=== PATIENT | male | born 1995 | race African-American/Black ===

== ENCOUNTER 2018-11-02 03:04 | Emergency (ER) | payer BC, SELFPAY ==
[2018-11-02] VITALS (63 sets, daily range): BP systolic 116–146; BP diastolic 56–84; PULSE 77–96; RESP 7–22; TEMP 36.7; O2SAT 82–100
--- NOTE | 2018-11-02 03:17 | W.ED.GENAD ---
Discharge Plan Disposition Patient Disposition: HOME Condition: Good Discharge Details Chief Complaint: Palpitatns Clinical Impression: Heart palpitations, ECG abnormality, Acute hypokalemia Primary Care Provider: Hermelinda,Local ED Provider: Dawson Moses Home Meds and New Rx's Prescriptions: No Action No Known Home Meds RF: 0 Discharge Instructions Instructions: Palpitations (ED) Additional Instructions: Your EKG shows abnormalities which are concerning. Since you are electing to follow-up closely with your talent acquisition associate it is imperative that you follow-up as soon as possible, and not miss the appointment. If you have any return of your symptoms please return immediately to the closest emergency department. Please have your primary care doctor and your talent acquisition associate contact the [facility] medical records department for the release of your records for their review. Please avoid any cocaine, alcohol, amphetamines, illicit drugs, or marijuana. If you notice any worsening of your symptoms, or any new symptoms such as vomiting, diarrhea, fever, chills, shortness of breath, chest pain, numbness, weakness, or fainting , please return immediately to the emergency department for reevaluation. Please follow up with your primary care provider as soon as possible for reassessment and reevaluation. As always, it was a pleasure participating in your medical care today. Discharge Data Discharge Date/Time-TO BE ENTERED AT DEPARTURE: 11/02/18 09:21 Medical Decision Making <Mendoza Joy MD - Last Filed: 11/02/18 08:42> 7:00 --22-year-old male who presents with chief complaint of palpitations after consuming heavy amounts of alcohol yesterday. Patient clinically intoxicated on arrival. Recent vomiting. Patient admits to THC use but denies any sympathomimetics. Considered electrolyte abnormalities. Labs reviewed and hypokalemia noted. Patient given potassium 20 mEq IV and 20 mEq orally. Initial EKG reviewed and interpreted by me: Sinus rhythm 86 bpm, normal axis, biphasic T waves with deep T wave inversion noted V2 and V3, J-point elevation in V4 to V6 noted. Repeat ECG reviewed and interpreted by me: Sinus rhythm 91 bpm, T wave inversions in V2 and V3 have resolved, he continues to have J-point elevation noted V4 to V6. Initial troponin negative. Plan for repeat troponin. UDS negative. Patient given 2L IVF fluid bolus. --Patient reassessed and much improved clinically. He is able to eat and drink normally. Mentating normally. Patient has no complaint of chest pain or palpitations. He does now note that he had some chest discomfort earlier when he had the palpitations and is now resolved. 8:00 -- Care signed out to Dr. Moses who will follow-up on trop, consult cardiology and disposition patient. HPI <Mendoza Joy MD - Last Filed: 11/02/18 08:42> General Mode of arrival: ambulatory. Date/Time Provider Initiated Documentation: 11/02/18 03:15. Limitations to Documentation: no limitations. Information obtained by: patient. HPI Narrative: 22-year-old male here with chief complaint of sensation of racing heart. This started just prior to arrival. Patient notes that he consumed a heavy amount of whiskey and beer tonight. Also used marijuana. He had episode of vomiting and diaphoresis and then developed heart racing. History is limited as patient is altered - presumed intoxication. Patient denies pain. No trauma. EMS initiated IV access, administered IV fluid and Zofran 4 mg IV. Related Data Home Medications Medication Instructions Recorded Confirmed Unknown [No Known Home Meds] 11/02/18 11/02/18 Allergies Allergy/AdvReac Type Severity Reaction Status Date / Time No Known Allergies Allergy Unverified 11/02/18 03:10 General Stated Complaint: Palpitatns MATI: 3 Review of Systems <Mendoza Joy MD - Last Filed: 11/02/18 08:42> Constitutional Denies headache(s) Eyes Denies blurry vision and Denies loss of vision ENT Denies headache(s) Cardiovascular Denies chest pain, Reports rapid heart rate and Denies dyspnea Respiratory Denies dyspnea Gastrointestinal Denies abdominal pain and Reports vomiting Integumentary/Breasts Reports other (diaphoresis) Neurologic Denies headache(s), Denies focal weakness and Denies loss of vision Psychiatric Denies anxiety PFSH <Mendoza Joy MD - Last Filed: 11/02/18 08:42> Social History Smoking/Tobacco Use Status: Never Alcohol Intake: current Alcohol Intake frequency: a few times a week Alcohol type: beer and hard liquor Drug use: Occasionally Substance use type: marijuana Exam <Mendoza Joy MD - Last Filed: 11/02/18 08:42> Const General: cooperative and no acute distress [facility] Head: normocephalic and atraumatic Mouth: moist mucous membranes Eyes Conjunctivae: normal conjunctivae Sclera: normal sclerae EOM: EOM intact bilaterally Neck Neck: supple Resp Auscultation: clear to auscultation bilaterally, no rales, no rhonchi and no wheezes Cardio Jugular venous pressure: no JVD Rate: regular rate and not tachycardic Rhythm: regular rhythm Heart Sounds: no gallops, no murmurs and no rubs GI Palpation: soft, not firm, no guarding, no masses, not rigid and nontender Skin General skin exam: no rashes or lesions noted Neuro General: alert, awake, oriented x3 and tone normal Speech: abnormal speech (slurred) Extrem General: no edema Course <Mendoza Joy MD - Last Filed: 11/02/18 08:42> Vital Signs Temperature 36.7 C 11/02/18 03:07 Pulse 93 H 11/02/18 03:07 Respiratory Rate 17 11/02/18 03:07 Blood Pressure 146/71 H 11/02/18 03:07 Pulse Oximetry 99 11/02/18 03:07 Temperature 36.7 C 11/02/18 03:07 Temperature Source Skin 11/02/18 03:07 Pulse 93 H 11/02/18 03:07 Respiratory Rate 17 11/02/18 03:07 Respiratory Effort Non-Labored 11/02/18 03:10 Blood Pressure 146/71 H 11/02/18 03:07 Blood Pressure Position Sitting 11/02/18 03:07 Pulse Oximetry 99 11/02/18 03:07 Oxygen Delivery Method Room Air 11/02/18 03:07 Oxygen Flow Rate 0 11/02/18 03:07 Pain Level 0 11/02/18 03:07 Sign Out <Mendoza Joy MD - Last Filed: 11/02/18 08:42> Sign Out Data: Sign Out Comment: follow-up on trop and consult cardiology and disposition patient Last updated by Mendoza Joy MD at 11/02/18 08:22
[2018-11-02 03:46] LABS: HCT 37.5 % (40.0-50.0); HGB 13.5 g/dL (13.5-17.5); Mean Corpuscular Hemoglobin 30.8 pg (27.0-33.0); Mean Corpuscular Volume 85.6 fL (80-95); Mean Platelet Volume 10.2 fL (8.0-11.0); Platelet Count 274 x1000/uL (130-400); RBC 4.38 m/cumm (4.50-6.00); RBC Distribution Width 11.8 % (11.8-14.1); White Blood Cell Count 10.79 k/cumm (4.4-10.8)
[2018-11-02 03:48] LABS: ALT 32 U/L (12-78); AST 26 U/L (15-37); Albumin 3.7 g/dL (3.4-5.0); Alkaline Phosphatase 54 U/L (46-116); Anion Gap 12.2 mmol/L (3-11); BUN 13 mg/dL (7-18); Bilirubin, Total 0.6 mg/dL (0.2-1.0); CO2 23.8 mmol/L (21.0-32.0); CREATININE 1.01 mg/dL (0.70-1.30); Calcium 7.8 mg/dL (8.5-10.1); Chloride 104 mmol/L (98-107); ETHANOL BLOOD 145.3 mg/dL (<3); Glucose 153 mg/dL (70-100); Potassium 3.1 mmol/L (3.5-5.1); Sodium 140 mmol/L (136-145); Total Protein 7.5 g/dL (6.4-8.2)
[2018-11-02] MEDS: Lactated Ringers 1,000 ML 1000 ML IV (03:54)
[2018-11-02] MEDS: POTASSIUM CHLORIDE 20 MEQ/100 ML BAG 50 MEQ IVPB (04:25)
[2018-11-02 04:32] LABS: Troponin I < 0.02 ng/mL (0.00-0.06)
[2018-11-02] MEDS: Lactated Ringers 1,000 ML 125 ML IV (05:34)
[2018-11-02] MEDS: Potassium Chloride 10 MEQ TABCR 20 MEQ PO (05:42)
[2018-11-02 05:56] LABS: *AMPHETAMINES SCREEN URINE Negative (Negative); *BARBITURATES SCREEN URINE Negative (Negative); *BENZODIAZEPINES SCREEN URINE Negative (Negative); Cannabinoids THC POSITIVE (Negative); Cocaine Screen,Urine Negative (Negative); METHADONE URINE SCREEN Negative (Negative); OPIATES URINE SCREEN Negative (Negative)
[2018-11-02 06:02] LABS: Tricyclic Antidepressants Negative (Negative)
[2018-11-02 08:00] LABS: Troponin I < 0.02 ng/mL (0.00-0.06)
--- NOTE | 2018-11-02 09:15 | ED.GENADUL_ITS ---
Discharge Plan Disposition Patient Disposition: HOME Condition: Good Discharge Details Chief Complaint: Palpitatns Clinical Impression: Heart palpitations, ECG abnormality, Acute hypokalemia Primary Care Provider: Hermelinda,Local ED Provider: Dawson Moses Home Meds and New Rx's Prescriptions: No Action No Known Home Meds RF: 0 Discharge Instructions Instructions: Palpitations (ED) Additional Instructions: Your EKG shows abnormalities which are concerning. Since you are electing to follow-up closely with your reimbursement analyst it is imperative that you follow-up as soon as possible, and not miss the appointment. If you have any return of your symptoms please return immediately to the closest emergency department. Please have your primary care doctor and your reimbursement analyst contact the [facility] medical records department for the release of your records for their review. Please avoid any cocaine, alcohol, amphetamines, illicit drugs, or marijuana. If you notice any worsening of your symptoms, or any new symptoms such as vomiting, diarrhea, fever, chills, shortness of breath, chest pain, numbness, weakness, or fainting , please return immediately to the emergency department for reevaluation. Please follow up with your primary care provider as soon as possible for reassessment and reevaluation. As always, it was a pleasure participating in your medical care today. Medical Decision Making The case was signed out to me by my colleague Dr. Mendoza Joy. Patient is a 22-year-old -[place] male who presented with palpitations and very brief chest pain after consuming a notable amount of alcohol and marijuana. Upon arrival his chest pain resolved and he was feeling much better. A very thorough work-up was performed, serial troponins were normal, initial EKG was somewhat atypical with a biphasic T wave in V3, and a mild biphasic component in V1 V2 with J-point elevation in V4 V5. Findings are slightly concerning for [facility], but this is certainly an atypical scenario. We did contact [facility] and I discussed the case with the nurse practitioners Miguel and Nemo, and then subsequently Dr. Romano, he also reviewed the EKG with his scientific programmer analyst. Although the history is notably atypical, especially with a lack of amphetamines, he too was concern for the slight abnormalities. His recommendation was transferred to [facility] for further evaluation by cardiology. The patient is from [facility], he goes to [place] in [place], and he was up only for the last 2 days to [place] with his friends. He is returning back today, and then back to [place] within the week. I discussed transfer and admission, as well as the notable concerns and risks with the EKG abnormalities, as well as his family history of cardiac disease in the late 40s and 50s. I discussed how further work-up and evaluation is certainly indicated, and of benefit, however taking into consideration the patient's current social status we did discuss the potential concern of discharge without immediate cardiology follow-up. Understanding the risks and benefits, the patient has a chosen to go home rather than be transferred to [facility], the patient is of sound mind, shows no clinical signs of intoxication, demonstrates decision-making capacity. I had an extensive conversation with the patient regarding the importance of absolute prompt follow-up. We have had him sign a medical release form, we will attempt to transfer his records to his PCP, and he has been given his EKGs personally to use as reference when he visits his primary care provider in [place]. Discussed the importance of absolute close follow-up with a reimbursement analyst and his PCP, as well as the importance of prompt return to the nearest ER facility if he has any return of his symptoms. Respecting the patient's wishes we will allow him to be discharged with him having a full and complete understanding of the risks of this decision. I have extensively reviewed the treatment plan and discharge instructions with the patient. I have addressed all patient concerns at this time. The patient was made aware of what symptoms to monitor for that would warrant a return to the emergency department. Discussed the plan with the patient, they demonstrate verbal understanding and agreement with our assessment and plan at this time. HPI General Mode of arrival: ambulatory . Date/Time Provider Initiated Documentation: 11/02/18 03:15 . Limitations to Documentation: no limitations . Information obtained by: patient . Related Data Home Medications Medication Instructions Recorded Confirmed Unknown [No Known Home Meds] 11/02/18 11/02/18 Allergies Allergy/AdvReac Type Severity Reaction Status Date / Time No Known Allergies Allergy Unverified 11/02/18 03:10 General Stated Complaint: Palpitatns MATI: 3 PFSH Social History Smoking/Tobacco Use Status: Never Alcohol Intake: current Alcohol Intake frequency: a few times a week Alcohol type: beer and hard liquor Drug use: Occasionally Substance use type: marijuana Course Vital Signs Temperature 36.7 C 11/02/18 03:07 Pulse 93 H 11/02/18 03:07 Respiratory Rate 17 11/02/18 03:07 Blood Pressure 146/71 H 11/02/18 03:07 Pulse Oximetry 99 11/02/18 03:07 Temperature 36.7 C 11/02/18 03:07 Temperature Source Skin 11/02/18 03:07 Pulse 89 11/02/18 07:45 Pulse 88 11/02/18 07:50 Respiratory Rate 17 11/02/18 07:50 Respiratory Effort Non-Labored 11/02/18 03:10 Blood Pressure 134/78 11/02/18 07:45 Blood Pressure Mean 90 11/02/18 07:45 Blood Pressure Position Sitting 11/02/18 03:07 Pulse Oximetry 98 11/02/18 07:01 Oxygen Delivery Method Room Air 11/02/18 05:30 Oxygen Flow Rate 0 11/02/18 05:30 Pain Level 0 11/02/18 03:07 Lab/Test Results Lab/Test Results: Laboratory Tests Range/Units 11/02/18 11/02/18 11/02/18 03:20 03:20 03:20 WBC (4.4-10.8) k/cumm 10.79 RBC (4.50-6.00) m/cumm 4.38 L Hgb (13.5-17.5) g/dL 13.5 Hct (40.0-50.0) % 37.5 L MCV (80-95) fL 85.6 MCH (27.0-33.0) pg 30.8 MCHC (32.0-36.0) g/dL 36.0 RDW (11.8-14.1) % 11.8 Plt Count (130-400) x1000/uL 274 MPV (8.0-11.0) fL 10.2 Sodium (136-145) mmol/L 140 Potassium (3.5-5.1) mmol/L 3.1 L Chloride (98-107) mmol/L 104 Carbon Dioxide (21.0-32.0) mmol/L 23.8 Anion Gap (3-11) mmol/L 12.2 H BUN (7-18) mg/dL 13 Creatinine (0.70-1.30) mg/dL 1.01 Estimated GFR/1.73 m2 (mL/min/1.73m2) >= 60.00 Glucose (70-100) mg/dL 153 H Calcium (8.5-10.1) mg/dL 7.8 L Total Bilirubin (0.2-1.0) mg/dL 0.6 AST (15-37) U/L 26 ALT (12-78) U/L 32 Alkaline Phosphatase (46-116) U/L 54 Troponin I (0.00-0.06) ng/mL < 0.02 Total Protein (6.4-8.2) g/dL 7.5 Albumin (3.4-5.0) g/dL 3.7 Urine Opiates Screen (Negative) Urine Methadone Screen (Negative) Ur Barbiturates Screen (Negative) Ur Tricyclics Screen (Negative) Ur Amphetamines Screen (Negative) U Benzodiazepines Scrn (Negative) Urine Cocaine Screen (Negative) Ur THC Screen (Negative) Ethyl Alcohol (<3) mg/dL 145.3 Range/Units 11/02/18 11/02/18 05:35 07:35 WBC (4.4-10.8) k/cumm RBC (4.50-6.00) m/cumm Hgb (13.5-17.5) g/dL Hct (40.0-50.0) % MCV (80-95) fL MCH (27.0-33.0) pg MCHC (32.0-36.0) g/dL RDW (11.8-14.1) % Plt Count (130-400) x1000/uL MPV (8.0-11.0) fL Sodium (136-145) mmol/L Potassium (3.5-5.1) mmol/L Chloride (98-107) mmol/L Carbon Dioxide (21.0-32.0) mmol/L Anion Gap (3-11) mmol/L BUN (7-18) mg/dL Creatinine (0.70-1.30) mg/dL Estimated GFR/1.73 m2 (mL/min/1.73m2) Glucose (70-100) mg/dL Calcium (8.5-10.1) mg/dL Total Bilirubin (0.2-1.0) mg/dL AST (15-37) U/L ALT (12-78) U/L Alkaline Phosphatase (46-116) U/L Troponin I (0.00-0.06) ng/mL < 0.02 Total Protein (6.4-8.2) g/dL Albumin (3.4-5.0) g/dL Urine Opiates Screen (Negative) Negative Urine Methadone Screen (Negative) Negative Ur Barbiturates Screen (Negative) Negative Ur Tricyclics Screen (Negative) Negative Ur Amphetamines Screen (Negative) Negative U Benzodiazepines Scrn (Negative) Negative Urine Cocaine Screen (Negative) Negative Ur THC Screen (Negative) Positive Ethyl Alcohol (<3) mg/dL Sign Out Sign Out Data: Sign Out Comment: follow-up on trop and consult cardiology and disposition patient Last updated by Mendoza Joy MD at 11/02/18 08:22
== END 2018-11-02 09:21 | disposition home or self-care (01) ==
PROVIDERS: Student in an Organized Health Care Education/Training Program; Emergency Provider Student in an Organized Health Care Education/Training Program
DX: R00.0 Tachycardia, unspecified (principal); R94.31 Abnormal electrocardiogram [ECG] [EKG]; E87.6 Hypokalemia; F10.929 Alcohol use, unspecified with intoxication, unspecified
CPT/HCPCS: 80053; 80307; 85027; 80320; 84484; J3480